=== PATIENT | female | born 1970 | race Caucasian/White ===

== ENCOUNTER 2017-03-20 15:27 | Emergency (ER) | payer OTHER, MEDICAID ==
[~2017-03-20] VITALS: Ht 157.5 cm; Wt 90.0 kg
[~2017-03-20 15:27] MED LIST: ACET500C5 PO; ALPR0.5T6 PO; ARIP30TA10 PO; ASPI81TA3 PO; ATEN-51 PO; BUPR200T PO; CLON1TAB3 PO; DOCU-144 PO; DOCU-159 PO; FAMO40TA52 PO; GABA300C16 PO; HYDR25SU24 PR; LEVO112T57 PO; LORA1TAB PO; METH10TA3 PO; METH36TA11 PO; NAPR-683 PO; OXYB5TAB7 PO; QUET100T32 PO; SIMV40TA2 PO; TRAM50TA2 PO
[2017-03-20 15:30] VITALS: Ht 157.5 cm; Wt 90.0 kg
[2017-03-20] MEDS ORDERED: IBUPROFEN 800 MG TAB PO ONE (16:00)
[2017-03-20] MEDS ORDERED: NPH10OT LEFT EAR (16:06)
[2017-03-20] MEDS ORDERED: ACET500C5 PO (16:07)
[2017-03-20] MEDS ORDERED: FLUT9.9S NASAL (16:07)
[2017-03-20] MEDS ORDERED: CETI10CA PO (16:08)
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
== END 2017-03-20 16:42 | disposition home or self-care (01) ==
LOC: FTE 15:27
DX: H92.12 Otorrhea, left ear (principal); I10 Essential (primary) hypertension; Z79.82 Long term (current) use of aspirin
CPT/HCPCS: 99283

== ENCOUNTER 2017-09-12 19:21 | Emergency (ER) | END 2017-09-12 23:39 | disposition home or self-care (01) ==